=== PATIENT | male | born 1980 | race Caucasian/White ===

== ENCOUNTER 2020-10-10 13:03 | Emergency (ER) | payer MEDICAID ==
[~2020-10-10] VITALS: Ht 185.4 cm; Wt 93.9 kg
--- NOTE | 2020-10-10 14:13 | NUR ---
TO ROOM AT THIS TIME
--- NOTE | 2020-10-10 14:40 | NUR ---
RN and PA student assessments completed.
[2020-10-10] MEDS ORDERED: KETOROLAC 30 MG/1 ML ONE (15:19)
--- NOTE | 2020-10-10 15:27 | NUR ---
Pt back from radiology at this time and medicated for pain with aseptic technique to R deltoid muscle. Pt tolerated well.
[2020-10-10] MEDS ORDERED: KETOROLAC 30 MG/1 ML IM ONE (15:30)
--- NOTE | 2020-10-10 16:10 | NUR ---
Pt states pain decreased to 4/10 after doctor of naprapathic medicine on reassessment.
[2020-10-10 16:38] VITALS: BP 117/83
== END 2020-10-10 16:55 | disposition home or self-care (01) ==
LOC: ED 16:42
DX: M25.531 Pain in right wrist (principal); M79.641 Pain in right hand; F17.210 Nicotine dependence, cigarettes, uncomplicated
CPT/HCPCS: 29125; 73110; 96372; 99283; J1885